=== PATIENT | female | born 1980 | race Caucasian/White ===

== ENCOUNTER 2022-04-23 16:53 | Outpatient (CLI) | payer BC | END 2022-04-23 16:54 | disposition home or self-care (01) | LOC: CSHLAB 16:53 | PROVIDERS: ATTEND Obstetrics & Gynecology | DX: Z01.818 Encounter for other preprocedural examination (principal); D25.9 Leiomyoma of uterus, unspecified | CPT/HCPCS: 84703; 85027; 86850; 86900; 86901; 93005; 93010 ==

== ENCOUNTER 2022-04-25 08:02 | Day surgery (SDC) | payer BC ==
[2022-04-23 16:06] VITALS: BMI 33.2
[2022-04-23 18:06] LABS: Hemoglobin 10.4 g/dL (12.0-15.5); Mean Corpuscular HGB CONC 33.8 g/dL (32.0-36.0); Mean Corpuscular Hemoglobin 27.5 pg (27.0-33.0); Mean Corpuscular Volume 81.5 fl (81.6-98.3); Mean Platelet Volume 9.8 fl (7.4-10.4); Platelet Count 354 10x3/uL (150-450); RBC Distribution Width 12.2 % (11.5-14.5); Red Blood Cell (RBC) Count 3.78 10x6/uL (3.90-5.03); White Blood Cell (WBC) Count 7.4 10x3/uL (3.5-10.5)
[2022-04-23 18:12] LABS: BHCG - Serum Negative (NEGATIVE); Pregs Control Background? CLEAR/WHITE (CLR/WHITE); Pregs Control Bar Appear? YES (CONTROL BAR)
[2022-04-25] MEDS ORDERED: Famotidine/PF 20 mg/2ml Vial ONE (08:08)
[2022-04-25] MEDS ORDERED: Gabapentin 300 MG CAP ONE (08:08)
[2022-04-25] MEDS ORDERED: CeleCOXIB 100 MG CAP ONE (08:08)
[2022-04-25] MEDS ORDERED: Fentanyl 100 MCG/2 ML VIAL ONE (09:44)
[2022-04-25] MEDS ORDERED: Methylene Blue 50 MG/10 ML AMPUL ONE (09:44)
[2022-04-25] MEDS ORDERED: Bupivacaine PF 0.5% 30 ML VIAL ONE (09:44)
[2022-04-25] MEDS ORDERED: Midazolam HCl 2 mg/2 ml Vial ONE (09:44)
[2022-04-25] MEDS ORDERED: Lidocaine 1% PF 5 ML VIAL ONE (09:44)
[2022-04-25] MEDS ORDERED: Rocuronium Bromide 10 MG/ML (10ML VIAL) ONE (09:44)
[2022-04-25] MEDS ORDERED: Glycopyrrolate 0.2 MG/ML 5 ML SYRINGE ONE (09:44)
[2022-04-25] MEDS ORDERED: PROPOFOL 20 ML ONE (09:44)
[2022-04-25] MEDS ORDERED: Ketorolac Tromethamine 30 MG/ML VIAL ONE (09:44)
[2022-04-25] MEDS ORDERED: Ondansetron PF 4 MG/2 ML Vial ONE (09:44)
[2022-04-25] MEDS ORDERED: CEFAZOLIN 2 GM VIAL ONE (10:11)
[2022-04-25] MEDS ORDERED: EPINEPHrine 1 MG/ML AMP ONE (11:21)
[2022-04-25] MEDS ORDERED: Meperidine HCl/PF 25 MG/ML VIAL ONE (12:26)
[2022-04-25] MEDS ORDERED: Ropivacaine 0.2% 550 ML 750 ML NERVE BLCK SCH (12:30)
[2022-04-25] MEDS ORDERED: Ropivacaine HCl/PF 750 ML in Premix Bag 1 BAG NERVE BLCK SCH (12:45)
== END 2022-04-25 16:05 | disposition home or self-care (01) ==
LOC: CSHSDC 08:02
PROVIDERS: ATTEND Obstetrics & Gynecology
PROC: 0UT94ZZ Resection of Uterus, Percutaneous Endoscopic Approach (ICD-10-PCS; principal; 2022-04-25)
PROC: 0UB74ZZ Excision of Bilateral Fallopian Tubes, Percutaneous Endoscopic Approach (ICD-10-PCS; principal; 2022-04-25)
DX: D25.9 Leiomyoma of uterus, unspecified (principal); N83.8 Other noninflammatory disorders of ovary, fallopian tube and broad ligament; N80.03 Adenomyosis of the uterus; N83.202 Unspecified ovarian cyst, left side; N83.201 Unspecified ovarian cyst, right side; N93.9 Abnormal uterine and vaginal bleeding, unspecified; N94.6 Dysmenorrhea, unspecified; I10 Essential (primary) hypertension; Z79.899 Other long term (current) drug therapy; Z88.2 Allergy status to sulfonamides
CPT/HCPCS: 84703; 85027; 86850; 86900; 86901; 88307; 88341; 88342; J0171; J1885; J2175; J2250; J2405; J2704; J2795; J3010; Q9968; S0020; S0028